=== PATIENT | male | born 1980 | race Caucasian/White ===

== ENCOUNTER 2017-05-18 07:19 | Emergency (ER) | payer SELFPAY ==
[~2017-05-18] VITALS: Ht 182.9 cm; Wt 77.0 kg
[2017-05-18 08:29] LABS: BASOPHILS % 0.7 % (0.0-2.0); EOSINOPHILS % 1.9 % (0.0-5.0); HEMATOCRIT. 36.1 % (42.0-52.0); LYMPHOCYTES % 18.4 % (20.0-50.0); MEAN CORPUSCULAR HEMOGLOBIN 29.7 pg (28.0-32.0); MEAN CORPUSCULAR VOLUME 89.4 fL (80.0-94.0); MEAN PLATELET VOLUME 9.8 fl (7.4-10.4); MONOCYTES % 5.9 % (2.0-8.0); NEUTROPHILS % 73.1 % (40.0-76.0); PLATELET 96 x1000/uL (130-400); RED BLOOD CELL COUNT 4.04 mill/uL (4.7-6.1); RED CELL DISTRIBUTION WIDTH 14.1 % (11.6-14.6)
[2017-05-18 08:35] LABS: CHLORIDE 113 mEq/L (98-107)
[2017-05-18 08:36] LABS: INR 1.1; PROTHROMBIN TIME 11.5 sec
[2017-05-18 08:43] LABS: CARBON DIOXIDE 23 mEq/L (21-32)
[2017-05-18] MEDS ORDERED: TETANUS, DIPHTHERIA, PERTUSSIS VAC/PF 0.5ML (>7YR OLD) IM ONE (08:45)
[2017-05-18] MEDS ORDERED: ONDANSETRON HCL 4MG/2ML VIAL IV ONE (08:45)
[2017-05-18] MEDS ORDERED: MORPHINE SULFATE 4 MG/ML CPJ (NOT FOR IM USE) IV ONE ×2 (08:45→10:30)
[2017-05-18] MEDS ORDERED: LIDOCAINE HCL 1% 20ML VIAL (Pyxis) INJ MC ONE (08:45)
[2017-05-18] MEDS ORDERED: SODIUM CHLORIDE 0.9% 1,000 ML IV ONE (10:07)
[2017-05-18 10:38] VITALS: BP 133/75
[2017-05-18] MEDS ORDERED: SODIUM CHLORIDE 0.9% 10ML VIAL ONE (11:08)
[2017-05-18] MEDS ORDERED: IOHEXOL-300 100 ML BOTTLE ONE (11:08)
== END 2017-05-18 10:35 | disposition short-term general hospital (02) ==
LOC: ER 08:35
PROC: 0HQFXZZ Repair Right Hand Skin, External Approach (ICD-10-PCS; principal; 2017-05-18)
PROC: 0HQ4XZZ Repair Neck Skin, External Approach (ICD-10-PCS; 2017-05-18)
PROC: 0HQCXZZ Repair Left Upper Arm Skin, External Approach (ICD-10-PCS; 2017-05-18)
DX: S11.81XA Laceration without foreign body of other specified part of neck, initial encounter (principal); S61.411A Laceration without foreign body of right hand, initial encounter; S41.012A Laceration without foreign body of left shoulder, initial encounter; J98.11 Atelectasis; J32.9 Chronic sinusitis, unspecified; M25.48 Effusion, other site; X99.1XXA Assault by knife, initial encounter; Y93.89 Activity, other specified; Y92.89 Other specified places as the place of occurrence of the external cause
CPT/HCPCS: 12004; 12034; 36415; 70491; 71010; 71260; 73030; 74160; 80053; 85025; 85610; 86850; 86900; 86901; 90471; 90715; 96361; 96374; 96375; 96376; 99291; A4216; J2270; J2405; J3490; J7030; Q9967; X7700; Z7610